=== PATIENT | male | born 1960 | race Caucasian/White ===

== ENCOUNTER 2016-05-08 20:30 | Emergency (ER) | payer OTHER, MEDICAID ==
--- NOTE | 2016-05-08 21:16 | EDM.PDOC ---
ED HPI LOWER BACK PAIN/INJURY - General Chief Complaint: Back Pain or Injury Stated Complaint: LOWER BACK IWONA N Time Seen by Provider: 05/08/16 21:10 Source of Information: Reports: Patient History Limitations: Reports: No limitations - History of Present Illness INITIAL COMMENTS - FREE TEXT/NARRATIVE: Patient presents for evaluation and treatment of back pain. Patient reports that the back pain woke him up yesterday morning. He reports that the back pain is located in his lower back and extends down his left leg shooting into his groin and left leg. Also noticed some numbness and tingling in to the anterior left leg. He denies any pain to the right leg. Only minimal pain to the right low back. Patient reports that he went to a chiropractor yesterday and was told his hip was out of place and he might have a pinched nerve. Instructed to see a physician if his symptoms persist. Patient denies any trauma, lifting or any known cause for the back pain. Additionally, patient denies any fevers, chills, nausea, vomiting, urinary incontinence, stool incontinence or any urinary symptoms. Patient is healthy with no known medical conditions. He is not a medications. He is in [place] for work. He has been working in the [employer]. He is from [place] and is scheduled to return later this month. Location: Reports: paraspinal (left) Severity: severe Associated Symptoms: Denies: Fever/chills, Nausea/vomiting, Problems urinating - Related Data Allergies/ADRs: Allergies Allergy/AdvReac Type Severity Reaction Status Date / Time No Known Allergies Allergy Verified 05/08/16 20:45 Home Meds: Home Meds Acetaminophen/oxyCODONE [Percocet 325-5 MG] 1 tab PO Q6H PRN #15 tablet [Rx] Orphenadrine [Norflex] 100 mg PO BID PRN #20 tab.er 05/08/16 [Rx] Prednisone [IJD: predniSONE] 40 mg PO WITHBREAKFAST #10 tab 05/08/16 [Rx] Past Medical History Musculoskeletal History: Reports: Fracture Other Musculoskeletal History: skull - Past Surgical History HEENT Surgical History: Reports: Naso-sinus surgery Social & Family History - Family History Family Medical History: Noncontributory - Tobacco Use Smoking Status *Q: Current Every Day Smoker Years of Tobacco use: 30 Packs/Tins Daily: 0.7 - Caffeine Use Caffeine Use: Reports: Coffee - Recreational Drug Use Recreational Drug Use: No ED ROS GENERAL - Review of Systems Review Of Systems: See Below Constitutional: Denies: fever, chills GI/Abdominal: Denies: Nausea, Stool incontinence, Vomiting : Reports: no symptoms. Denies: incontinence Musculoskeletal: Reports: back pain (low back left > right), leg pain (left ) Neurological: Reports: numbness (left leg), tingling (left leg) ED EXAM,LOWER BACK PAIN/INJURY - Physical Exam Exam: See Below Exam Limited By: No limitations General Appearance: alert, WD/WN, mild distress Respiratory/Chest: no respiratory distress, lungs clear, normal breath sounds Cardiovascular: normal peripheral pulses, regular rate, rhythm, no murmur GI/Abdominal: soft, non tender Back Exam: normal inspection, decreased range of motion (ROM testing defferred due to pain), paraspinal tenderness (left sciatic notch). No: vertebral tenderness Neurological: alert, normal mood/affect, normal dorsiflexion, normal plantar flexion, straight leg raise (L), straight leg raise (R) (causes pain to left), difficulty walking (slow, deliberate gait) Psychiatric: normal affect, normal mood Skin Exam: Warm, Dry, Normal color Course - Vital Signs Last Recorded V/S: Last Vital Signs Temp 37.0 C 05/08/16 20:41 Pulse 70 05/08/16 20:41 Resp 16 05/08/16 20:41 BP 141/90 H 05/08/16 20:41 Pulse Ox 98 05/08/16 20:41 - Re-Assessments/Exams Free Text/Narrative Re-Assessment/Exam: 05/08/16 21:[address] himself here[address] I will give him a short of toradol here in the ED for additional pain relief. We discussed x-rays. At this time I feel he likely has sciatica and do not feel that x-rays would give us much benefit. He would like to defer x-rays at this time. Will prescribe some medication for pain and inflammation. He is instructed to follow up with primary care provider if his symptoms do not improve in 1-2 weeks. He is to return to ER immediately should his symptoms change or worsen. We will discharge her home at this time. Departure - Departure Time of Disposition: 21:12 Disposition: Home, Self-Care 01 Condition: fair Clinical Impression: Sciatica Prescriptions: Acetaminophen/oxyCODONE [Percocet 325-5 MG] 1 tab PO Q6H PRN #15 tablet PRN Reason: Pain Orphenadrine [Norflex] 100 mg PO BID PRN #20 tab.er PRN Reason: Muscle Spasm Prednisone [IJD: predniSONE] 40 mg PO WITHBREAKFAST #10 tab Instructions: Sciatica, [id number] Referrals: PCP,None [Primary Care Provider] - Forms: ED Department Discharge Additional Instructions: Take the prednisone as prescribed, 40mg PO daily. Norflex 1 tab PO bid prn muscle spasms. Percocet 1 tab q4-6 hours prn severe pain. No driving or operating machinery within 8 hours of taking the percocet. Take as few of the percocoet as needed to control you pain as percocet can be habit forming. Take OTC ibuprofen or aleve for less severe pain. Follow-up with PCP in 1-2 weeks if not better. Heat and ice to the sore areas. Activity as tolerated. Recommend gentle stretching. Do not be bed bound as this can worsen the muscle spasms. Please return to the ER should your symptoms change or worsen.
== END 2016-05-08 21:25 | disposition home or self-care (01) ==
LOC: JD.ED 20:30
CPT/HCPCS: 99283